=== PATIENT | female | born 1955 | race Hispanic/Latino ===

== ENCOUNTER 2022-11-03 07:59 | Inpatient (IN) | payer MEDICARE ==
[2022-11-02 10:20] LABS: BASOPHILS # (AUTO) 0.1 (0.0-0.1); BASOPHILS % 1.3 % (0.0-1.0); EOSINOPHILS # (AUTO) 0.4 (0.0-0.4); HEMATOCRIT 46.4 % (34.2-44.1); HEMOGLOBIN 15.6 g/dL (12.0-16.0); LYMPHOCYTES # (AUTO) 2.1 (1.0-3.2); MEAN CORPUSCULAR HEMOGLOBIN 28.4 pg (28-32); MEAN CORPUSCULAR HGB CONC 33.6 g/dL (31-35); MEAN CORPUSCULAR VOLUME 84.5 fL (81-99); MONOCYTES # (AUTO) 0.5 (0.2-0.8); MONOCYTES % 5.7 % (4.4-11.3); NEUTROPHILS # (AUTO) 5.4 (2.1-6.9); NEUTROPHILS % 62.2 % (38.7-80.0); PLATELET COUNT 310 x10e3/uL (140-360); RED BLOOD COUNT 5.49 x10e6/uL (3.6-5.1); RED CELL DISTRIBUTION WIDTH 12.5 % (11.7-14.4)
[2022-11-02 10:32] LABS: ANION GAP 12.9 mmol/L (8-16); CALCIUM 11.3 mg/dL (8.4-10.2); CREATININE, SERUM 0.83 mg/dL (0.57-1.11); POTASSIUM 3.9 mmol/L (3.5-5.1)
[~2022-11-03] VITALS: Ht 154.9 cm; Wt 68.0 kg
[~2022-11-03 07:59] MED LIST: ALENDRONATE SOD70 MG PO; ATORVASTATIN CA10 MG PO; DIOVAN HCT 3201 EAC1 PO; METFORMIN HCL500 MG PO
[2022-11-03] MEDS ORDERED: Clindamycin INJ 300 MG/50 ML 50 ML IV ONE (08:57)
[2022-11-03] MEDS ORDERED: PIPERACILLIN/TAZOBACTAM 3.375 GM VIAL ONE (08:57)
[2022-11-03] MEDS ORDERED: GENTAMICIN 80MG/NS 100 ML 200 ML IV ONE (08:57)
[2022-11-03] MEDS ORDERED: LACTATED RINGER'S 1,000 ML ONE (09:07)
[2022-11-03] MEDS ORDERED: LIDOCAINE 2%/ EPINEPHRINE 20ML MDV ONE (10:27)
[2022-11-03] MEDS ORDERED: GENTAMICIN SULFATE 40 MG/ML 2 ML VIAL ONE (10:27)
[2022-11-03] MEDS ORDERED: IOPAMIDOL 610MG/1ML 300 MG/ML VIAL IV ONE (10:27)
[2022-11-03] MEDS ORDERED: BUPIVACAINE HCL 0.5% INJ 30 ML VIAL INJ ONE (10:27)
[2022-11-03] MEDS ORDERED: METHYLENE BLUE 1% INJ 10 ML VIAL INJ ONE (10:32)
[2022-11-03] MEDS ORDERED: SILVER SULFADIAZINE 25 GM CREAM..G. TP ONE (10:36)
[2022-11-03] MEDS ORDERED: ACETAMINOPHEN 1000 MG/100 ML 100 ML IV ONE (11:03)
[2022-11-03] MEDS ORDERED: PHENAZOPYRIDINE HCL 100 MG TAB PO PRN (11:15)
[2022-11-03] MEDS ORDERED: DIPHENHYDRAMINE HCL 25 MG CAP PO PRN (11:15)
[2022-11-03] MEDS ORDERED: ONDANSETRON HCL INJ 2MG/ML 2ML 2 MG/ML VIAL IV PRN (11:15)
[2022-11-03] MEDS ORDERED: DEXAMETHASONE SOD PHOS INJ 4 MG/ML SDV ONE (11:48)
[2022-11-03] MEDS ORDERED: EPHEDRINE SULFATE INJ 50 MG/ML VIAL ONE (11:48)
[2022-11-03] MEDS ORDERED: ONDANSETRON HCL INJ 2MG/ML 2ML 2 MG/ML VIAL ONE (11:48)
[2022-11-03] MEDS ORDERED: POVIDONE IODINE 0.05% 0.05 % ML PO ONE (11:48)
[2022-11-03] MEDS ORDERED: SEVOFLURANE INHAL SOLN 250 ML PEN BTL ONE (11:48)
[2022-11-03] MEDS ORDERED: LIDOCAINE HCL 2% LOCAL INJ 5 ML SDV VIAL INJ ONE (11:48)
[2022-11-03] MEDS ORDERED: PROPOFOL IV EMULSION 10 MG/ML 20 ML VIAL ONE (11:48)
[2022-11-03] MEDS ORDERED: MIDAZOLAM HCL 2 MG/2 ML VIAL ONE (11:52)
[2022-11-03] MEDS ORDERED: FENTANYL CITRATE/PF 100MCG/2 ML INJ ONE ×2 (11:52→13:10)
[2022-11-03 13:06] LABS: BASOPHILS # (AUTO) 0.1 (0.0-0.1); BASOPHILS % 0.7 % (0.0-1.0); EOSINOPHILS # (AUTO) 0.1 (0.0-0.4); EOSINOPHILS % 0.7 % (0.0-6.0); HEMATOCRIT 43.4 % (34.2-44.1); HEMOGLOBIN 14.5 g/dL (12.0-16.0); LYMPHOCYTES # (AUTO) 1.4 (1.0-3.2); MEAN CORPUSCULAR HEMOGLOBIN 27.9 pg (28-32); MEAN CORPUSCULAR HGB CONC 33.4 g/dL (31-35); MEAN CORPUSCULAR VOLUME 83.6 fL (81-99); MONOCYTES # (AUTO) 0.3 (0.2-0.8); MONOCYTES % 2.6 % (4.4-11.3); PLATELET COUNT 293 x10e3/uL (140-360); RED BLOOD COUNT 5.19 x10e6/uL (3.6-5.1); RED CELL DISTRIBUTION WIDTH 12.8 % (11.7-14.4)
[2022-11-03 14:00] LABS: ANION GAP 14.2 mmol/L (8-16); CALCIUM 10.4 mg/dL (8.4-10.2); CREATININE, SERUM 0.86 mg/dL (0.57-1.11); POTASSIUM 4.2 mmol/L (3.5-5.1)
[2022-11-03] MEDS ORDERED: DOCUSATE SODIUM 100 MG CAP PO SCH (17:00)
[2022-11-03] MEDS: SODIUM CHLORIDE 0.9% 1000ML 1,000 ML IV SCH (17:00)
[2022-11-03 17:04] VITALS: BP 115/80; PULSE 95; RESP 16; TEMP 97.8; O2SAT 99
[2022-11-03] MEDS ORDERED: ACETAMINOPHEN 1000 MG/100 ML IV PRN (18:00)
[2022-11-03 19:59] VITALS: PULSE 87; RESP 16; O2SAT 97
[2022-11-03 20:00] VITALS: BP 112/67; PULSE 89; RESP 16; TEMP 97.6; O2SAT 98
[2022-11-03] MEDS: DOCUSATE SODIUM 100 MG CAP PO SCH (20:51)
[2022-11-03 21:37] VITALS: BP 112/67; PULSE 89; RESP 16; TEMP 97.6; O2SAT 98
[2022-11-04] VITALS (8 sets, daily range): BP systolic 94–125; BP diastolic 63–71; PULSE 72–86; RESP 18–20; TEMP 97.7–98.5; O2SAT 94–99
[2022-11-04] MEDS: ACETAMINOPHEN/CODEINE 300MG - 30MG TAB PO PRN ×3 (02:38→20:47)
[2022-11-04 04:40] LABS: BASOPHILS # (AUTO) 0.1 (0.0-0.1); BASOPHILS % 0.4 % (0.0-1.0); HEMATOCRIT 36.9 % (34.2-44.1); HEMOGLOBIN 12.4 g/dL (12.0-16.0); LYMPHOCYTES # (AUTO) 1.6 (1.0-3.2); LYMPHOCYTES % 10.3 % (18.0-39.1); MEAN CORPUSCULAR HEMOGLOBIN 28.7 pg (28-32); MEAN CORPUSCULAR HGB CONC 33.6 g/dL (31-35); MEAN CORPUSCULAR VOLUME 85.4 fL (81-99); MONOCYTES % 6.5 % (4.4-11.3); NEUTROPHILS # (AUTO) 12.9 (2.1-6.9); NEUTROPHILS % 82.2 % (38.7-80.0); PLATELET COUNT 282 x10e3/uL (140-360); RED BLOOD COUNT 4.32 x10e6/uL (3.6-5.1); RED CELL DISTRIBUTION WIDTH 12.9 % (11.7-14.4)
[2022-11-04 04:57] LABS: CALCIUM 9.8 mg/dL (8.4-10.2); CREATININE, SERUM 0.68 mg/dL (0.57-1.11)
[2022-11-04] MEDS: SODIUM CHLORIDE 0.9% 1000ML 1,000 ML IV SCH ×2 (05:18→17:13)
[2022-11-04] MEDS: DOCUSATE SODIUM 100 MG CAP PO SCH ×2 (08:42→20:45)
[2022-11-04] MEDS ORDERED: DEXTROSE 50% SYRINGE 50 ML IV PRN (08:45)
[2022-11-04] MEDS ORDERED: HYDRALAZINE HCL 20 MG/ML VIAL IV PRN (08:45)
[2022-11-04] MEDS: FAMOTIDINE 20 MG/2 ML VIAL IV SCH ×2 (11:09→17:13)
[2022-11-04] MEDS: INSULIN LISPRO 100 UNIT/1 ML 3ML VIAL SQ SCH ×3 (11:10→20:53)
[2022-11-04] MEDS ORDERED: ATORVASTATIN 10 MG TAB PO SCH (21:00)
[2022-11-05 04:00] VITALS: BP 111/68; PULSE 80; RESP 18; TEMP 98; O2SAT 94
[2022-11-05 05:02] LABS: BASOPHILS # (AUTO) 0.1 (0.0-0.1); BASOPHILS % 0.7 % (0.0-1.0); EOSINOPHILS # (AUTO) 0.2 (0.0-0.4); EOSINOPHILS % 1.9 % (0.0-6.0); HEMATOCRIT 35.3 % (34.2-44.1); HEMOGLOBIN 11.8 g/dL (12.0-16.0); LYMPHOCYTES # (AUTO) 2.4 (1.0-3.2); MEAN CORPUSCULAR HEMOGLOBIN 28.2 pg (28-32); MEAN CORPUSCULAR HGB CONC 33.4 g/dL (31-35); MEAN CORPUSCULAR VOLUME 84.2 fL (81-99); MONOCYTES # (AUTO) 0.9 (0.2-0.8); MONOCYTES % 8.8 % (4.4-11.3); NEUTROPHILS # (AUTO) 6.1 (2.1-6.9); NEUTROPHILS % 62.9 % (38.7-80.0); PLATELET COUNT 233 x10e3/uL (140-360); RED BLOOD COUNT 4.19 x10e6/uL (3.6-5.1); RED CELL DISTRIBUTION WIDTH 13.2 % (11.7-14.4)
[2022-11-05 05:23] LABS: ANION GAP 8.7 mmol/L (8-16); CALCIUM 9.2 mg/dL (8.4-10.2); CREATININE, SERUM 0.68 mg/dL (0.57-1.11); POTASSIUM 3.7 mmol/L (3.5-5.1)
[2022-11-05] MEDS: SODIUM CHLORIDE 0.9% 1000ML 1,000 ML IV SCH (07:10)
[2022-11-05] MEDS: INSULIN LISPRO 100 UNIT/1 ML 3ML VIAL SQ SCH (07:30)
[2022-11-05 08:32] VITALS: BP 97/81; PULSE 74; RESP 18; TEMP 98.3; O2SAT 98
[2022-11-05] MEDS: DOCUSATE SODIUM 100 MG CAP PO SCH (08:39)
[2022-11-05] MEDS: ACETAMINOPHEN/CODEINE 300MG - 30MG TAB PO PRN (08:39)
[2022-11-05] MEDS: FAMOTIDINE 20 MG/2 ML VIAL IV SCH (08:39)
[2022-11-05 09:30] VITALS: BP 97/81; PULSE 74; RESP 18; TEMP 98.3; O2SAT 98
[2022-11-05] MEDS ORDERED: CIPRO250 MG PO (10:39)
[2022-11-05] MEDS ORDERED: TYLENOL #3 PO (10:41)
[2022-11-05] MEDS ORDERED: ONDANSETRON ODT4 MG SL (10:43)
[2022-11-05] MEDS ORDERED: NEURONTIN100 MG PO (10:44)
[2022-11-05 11:51] VITALS: BP 139/78; PULSE 74; RESP 18; TEMP 98.8; O2SAT 98
== END 2022-11-05 12:18 | disposition home or self-care (01) | DRG 748 ==
LOC: OR 07:59 → PACU V 11:10 → MED/SURG 16:00
PROVIDERS: ADMIT Urology; ATTEND Urology
PROC: 0TSD0ZZ Reposition Urethra, Open Approach (ICD-10-PCS; 2022-11-03)
PROC: BT141ZZ Fluoroscopy of Kidneys, Ureters and Bladder using Low Osmolar Contrast (ICD-10-PCS; 2022-11-03)
PROC: 0JUC0JZ Supplement of Pelvic Region Subcutaneous Tissue and Fascia with Synthetic Substitute, Open Approach (ICD-10-PCS; principal; 2022-11-03 10:55)
DX: N81.10 Cystocele, unspecified (principal); N39.0 Urinary tract infection, site not specified; E11.9 Type 2 diabetes mellitus without complications; E78.5 Hyperlipidemia, unspecified; I10 Essential (primary) hypertension; R10.2 Pelvic and perineal pain; N39.3 Stress incontinence (female) (male); R31.29 Other microscopic hematuria; D72.829 Elevated white blood cell count, unspecified; N32.81 Overactive bladder; N95.2 Postmenopausal atrophic vaginitis; Z87.440 Personal history of urinary (tract) infections
CPT/HCPCS: 36415; 71046; 74420; 80048; 82948; 83735; 85025; 93005; 94799; 96361; C1758; C1762; J0696; J1100; J1580; J2001; J2250; J2405; J2543; J7030